=== PATIENT | female | born 2000 | race Caucasian/White ===

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

== ENCOUNTER → 2018-11-24 | Outpatient (CLI) | payer OTHER ==
--- NOTE | 2018-11-24 16:44 | REP ---
Left knee five views : There is no fracture or dislocation. Mineralization and joint spaces are normal. There are no calcifications or foreign bodies. Impression: Negative left knee . Electronically Signed by Celso Tapia MD 11/24/2018 04:36 P
== END ==
LOC: M RAD 16:16
DX: M25.562 Pain in left knee (principal)

== ENCOUNTER → 2020-05-12 | Outpatient (CLI) | payer SELFPAY | LOC: M LABSMTC 11:39 | PROVIDERS: ATTEND Pediatrics | DX: Z20.828 Contact with and (suspected) exposure to other viral communicable diseases (principal) ==